=== PATIENT | female | born 1955 | race Two or more races ===

== ENCOUNTER 2022-04-16 07:12 | Emergency (ER) | payer SELFPAY ==
[~2022-04-16] VITALS: Ht 162.6 cm; Wt 61.7 kg
--- NOTE | 2022-04-16 07:35 | NUR ---
RECEIVED PT 67 YRS FEMALE C/O LOWER BACK PAIN S/P FELL DOWN HAD FX ON BACK PT WAS SEEN yesterday in [facility]/c [facility]
[2022-04-16] MEDS ORDERED: KETOROLAC TROMETHAMINE INJ 30 MG/ML VIAL ONE (07:54)
[2022-04-16] MEDS ORDERED: ONDANSETRON 4 MG TAB.RAPDIS SL ONE (08:00)
[2022-04-16] MEDS ORDERED: KETOROLAC TROMETHAMINE INJ 60 MG/2 ML VIAL IM ONE (08:00)
[2022-04-16] MEDS ORDERED: ONDANSETRON 4 MG TAB.RAPDIS ONE (08:06)
[2022-04-16] MEDS ORDERED: oxyCODONE/APAP (5/325 MG) 1 UDTAB TABLET PO ONE (08:30)
[2022-04-16] MEDS ORDERED: OXYC-128 PO (08:34)
[2022-04-16] MEDS ORDERED: oxyCODONE/APAP (5/325 MG) 1 UDTAB TABLET ONE (08:42)
--- NOTE | 2022-04-16 08:47 | NUR ---
Patient discharged to home in stable condition. Written and verbal after care instructions given. Patient verbalizes understanding of instruction. D/C INSTRACTION GIVEN TO PT BY DR. YOUNG
[2022-04-16 09:17] VITALS: BP 135/97
== END 2022-04-16 09:18 | disposition home or self-care (01) ==
LOC: ER 07:16
DX: S32.029A Unspecified fracture of second lumbar vertebra, initial encounter for closed fracture (principal); E11.9 Type 2 diabetes mellitus without complications; F32.9 Major depressive disorder, single episode, unspecified; Z88.8 Allergy status to other drugs, medicaments and biological substances; Z79.899 Other long term (current) drug therapy; W18.30XA Fall on same level, unspecified, initial encounter; Y93.89 Activity, other specified; Y92.89 Other specified places as the place of occurrence of the external cause; Y99.8 Other external cause status
CPT/HCPCS: 99283; 96372; J1885; Q0162

== ENCOUNTER 2022-05-02 16:22 | Emergency (ER) | payer MEDICARE ==
[~2022-05-02] VITALS: Ht 154.9 cm; Wt 51.3 kg
[~2022-05-02 16:22] MED LIST: OXYC-128 PO
--- NOTE | 2022-05-02 16:35 | NUR ---
VICTOR MANUEL [place] [facility] PT STATED SHE SLIPPED AND FELL ON HER BACK AND WAS SEEN PREVIOUSLY FOR IT, PT STATED THE PAIN BECOME WORSE AND PAIN MEDICATION ARE NOT WORKING. PT ARRIVED WITH A BACK BRACE. ABLE TO AMBULATE WITH ASSISTANCE. DR LACEY AT BEDSIDE. AWAITING MD ORDERS.
--- NOTE | 2022-05-02 16:47 | NUR ---
[facility] [phone] JAY [phone]
--- NOTE | 2022-05-02 16:51 | NUR ---
PT TAKEN TO CT VIA WHEELCHAIR
--- NOTE | 2022-05-02 16:57 | NUR ---
PT RETURNED FROM CT VIA WHEELCHAIR
[2022-05-02] MEDS ORDERED: MORPHINE SULFATE INJ 4 MG/ML DISP.SYRIN ONE ×2 (16:59→17:35)
[2022-05-02] MEDS ORDERED: MORPHINE SULFATE INJ 2 MG/ML DISP.SYRIN IM ONE (17:00)
[2022-05-02] MEDS ORDERED: MORPHINE SULFATE INJ 2 MG/ML DISP.SYRIN IV ONE (18:00)
--- NOTE | 2022-05-02 19:15 | NUR ---
[facility] CALLED FOR TRANSPORT ETA 90 MINS PER [place].
--- NOTE | 2022-05-02 19:28 | NUR ---
RECEIVED REPORT FROM KENDELL CAMARGO. PATIENT IS HERE FOR BACK PAIN AFTER GLF SUSTAINED FEW DAYS AGO. SHE HAS BACK BRACE AND PERIPHERAL LINE ON RIGHT HAND G24. PATIENT IS FOR DISCHARGE BACK TO [facility]. PATIENT IS AAOX4. SHE IS ASKING TO GO BACK NOW TO [facility]. CN MADE AWARE. TRANSPORTATION BEING ARRANGED. VITALS CHECKED.
--- NOTE | 2022-05-02 21:00 | NUR ---
IV CANNULA REMOVED. REPORT GIVEN TO [facility].
--- NOTE | 2022-05-02 21:15 | NUR ---
Patient discharged to home in stable condition. Written and verbal after care instructions given. Patient verbalizes understanding of instruction.
--- NOTE | 2022-05-02 21:25 | NUR ---
Gordon suarez in [facility] - 05/02/22 at 2125 by EUN IV CANNULA REMOVED.
[2022-05-02 21:28] VITALS: BP 109/81
== END 2022-05-02 21:15 | disposition home or self-care (01) ==
LOC: ER 16:24
DX: S32.029A Unspecified fracture of second lumbar vertebra, initial encounter for closed fracture (principal); S32.039A Unspecified fracture of third lumbar vertebra, initial encounter for closed fracture; E11.9 Type 2 diabetes mellitus without complications; F32.9 Major depressive disorder, single episode, unspecified; Z88.8 Allergy status to other drugs, medicaments and biological substances; Z79.899 Other long term (current) drug therapy; W18.30XA Fall on same level, unspecified, initial encounter; Y93.89 Activity, other specified; Y92.89 Other specified places as the place of occurrence of the external cause; Y99.8 Other external cause status
CPT/HCPCS: 99284; 72131; 96374; 72128; 96372; J2270 ×2

== ENCOUNTER 2022-10-01 18:45 | Emergency (ER) | payer SELFPAY ==
[~2022-10-01] VITALS: Ht 160 cm; Wt 70.8 kg
--- NOTE | 2022-10-01 19:00 | NUR ---
TO ER BED 10. FRM [facility] REHANB C/O RUQ PAIN R/T BACK X TODAY GOT WORST S/P EATING DINNER. HX PANCREATITIS. +N/V. PT IS ALERT AND ORIENTED. LEGALLY BLIND, AMBULATES W/ ASSISTANCE AND CANE. RR EVEN AND NON LABORED. CONNECTED TO MONITOR. SAFETY PRECAUTIONS IN PLACE.
[2022-10-01] MEDS ORDERED: MORPHINE SULFATE INJ 2 MG/ML DISP.SYRIN IV ONE (19:30)
[2022-10-01] MEDS ORDERED: ONDANSETRON HCL/PF 4 MG/2 ML VIAL IVP ONE (19:30)
[2022-10-01] MEDS ORDERED: IV NS 0.9% 1,000 ML BAG IV ONE (19:30)
--- NOTE | 2022-10-01 19:37 | NUR ---
IV LINE ESTABLISHED, LHAND 20G
--- NOTE | 2022-10-01 19:37 | NUR ---
BLOOD COLLECTED AND SENT TO LAB
[2022-10-01] MEDS ORDERED: MORPHINE SULFATE INJ 4 MG/ML DISP.SYRIN ONE (19:38)
[2022-10-01] MEDS ORDERED: ONDANSETRON HCL/PF 4 MG/2 ML VIAL ONE (19:38)
[2022-10-01 20:14] LABS: CALCIUM, SERUM 9.4 mg/dL (8.5-10.1); CARBON DIOXIDE 26 mmol/L (21-32); CHLORIDE 106 mmol/L (98-107); CREATININE 0.9 mg/dL (0.6-1.3); GLUCOSE 109 mg/dL (74-106); POTASSIUM 3.7 mmol/L (3.5-5.1); SODIUM SERUM 139 mmol/L (136-145); UREA NITROGEN, BLOOD 7 mg/dL (7-18)
[2022-10-01 20:19] LABS: BASOPHILS % (AUTO) 0.6 % (0.0-2.0); EOSINOPHILS % (AUTO) 2.2 % (0.0-6.0); HEMATOCRIT 40 % (33-45); HEMOGLOBIN 13.2 g/dL (11.5-14.8); LYMPHOCYTES # (AUTO) 2.5 K/uL (0.8-4.8); LYMPHOCYTES % (AUTO) 43.7 % (20.0-44.0); MEAN CORPUSCULAR HGB CONC 33 g/dl (31.0-36.0); MEAN CORPUSCULAR VOLUME 90 fL (82-100); MONOCYTES # (AUTO) 0.4 K/uL (0.1-1.30); MONOCYTES % (AUTO) 6.1 % (2.0-12.0); NEUTROPHILS # (AUTO) 2.8 K/uL (1.8-8.9); NEUTROPHILS % (AUTO) 47.4 % (43.0-81.0); PLATELET COUNT (AUTO) 234 K/uL (150-450); RED BLOOD CELL COUNT(AUTO) 4.44 MIL/uL (4.0-5.2); WHITE BLOOD COUNT (AUTO) 5.8 K/uL (4.3-11.0)
[2022-10-01 20:24] LABS: ALANINE AMINOTRANSFERASE 50 U/L (12-78); ALBUMIN 3.8 g/dL (3.4-5.0); ALKALINE PHOSPHATASE 123 U/L (46-116); ASPARTATE AMINOTRANSFERASE 40 U/L (15-37); BILIRUBIN,DIRECT 0.1 mg/dL (0.0-0.2); BILIRUBIN,TOTAL 0.3 mg/dL (0.2-1.0); LIPASE 17 U/L (73-393); TOTAL PROTEIN, SERUM 7.6 g/dL (6.4-8.2)
[2022-10-01] MEDS ORDERED: HYDROMORPHONE 1 MG/1 ML DISP.SYRIN ONE (20:25)
[2022-10-01] MEDS ORDERED: HYDROMORPHONE 1 MG/1 ML DISP.SYRIN IV ONE (20:30)
--- NOTE | 2022-10-01 20:31 | NUR ---
PT UNABLE TO PROVIDE URINE AT THIS TIME
--- NOTE | 2022-10-01 21:12 | NUR ---
URINE COLLECTED AND SENT TO LAB
[2022-10-01] MEDS ORDERED: HYDR-4303 PO (22:00)
--- NOTE | 2022-10-01 22:10 | NUR ---
Patient discharged to home in stable condition. Written and verbal after care instructions given. Patient verbalizes understanding of instruction.
[2022-10-01 22:15] VITALS: BP 129/80
[2022-10-01 22:42] LABS: BILIRUBIN,URINE NEGATIVE (NEGATIVE); COLOR,URINE OTHER (YELLOW); LEUKOCYTE ESTERASE ,URINE NEGATIVE (NEGATIVE); NITRITE, URINE NEGATIVE (NEGATIVE); PROTEIN,URINE NEGATIVE (NEGATIVE); UGLUCOSE NEGATIVE (NEGATIVE); UROBILINOGEN,URINE 0.2 EU/dL (0.2)
[2022-10-01 23:35] LABS: BACTERIA,URINE Rare /HPF (None Seen); SQUAMOUS EPITHELIAL CELL,UR Few /HPF (None Seen)
== END 2022-10-01 22:15 | disposition home or self-care (01) ==
LOC: ER 18:57
DX: K86.1 Other chronic pancreatitis (principal); R10.13 Epigastric pain; E11.9 Type 2 diabetes mellitus without complications; F32.9 Major depressive disorder, single episode, unspecified; Z86.16 Personal history of COVID-19; Z88.8 Allergy status to other drugs, medicaments and biological substances; Z79.899 Other long term (current) drug therapy
CPT/HCPCS: 99285; 74176; 96374; 96375; 96361; 93005; 85025; 80048; 83690; 80076; 81001; 36415; 84484; J2270; J2405; J7030; J1170